=== PATIENT | female | born 1955 | race Caucasian/White ===

== ENCOUNTER 2016-11-18 14:07 | Emergency (ER) | payer BC ==
[~2016-11-18] VITALS: Ht 157.5 cm; Wt 67.9 kg
[2016-11-18] MEDS ORDERED: PERCOCET 5/31 TABLET PO (16:26)
[2016-11-18 16:49] VITALS: BP 111/74
== END 2016-11-18 16:50 | disposition home or self-care (01) ==
LOC: EME 14:07
DX: S62.632B Displaced fracture of distal phalanx of right middle finger, initial encounter for open fracture (principal); S61.312A Laceration without foreign body of right middle finger with damage to nail, initial encounter; W23.0XXA Caught, crushed, jammed, or pinched between moving objects, initial encounter; E78.5 Hyperlipidemia, unspecified; F17.200 Nicotine dependence, unspecified, uncomplicated
CPT/HCPCS: 73130; 99281; 99284